=== PATIENT | female | born 2000 ===

== ENCOUNTER 2020-03-31 00:48 | Inpatient (IN) ==
[2020-03-31] MEDS: LACTATED RINGER'S 1,000 ML IV PRN ×2 (01:10→06:05)
[2020-03-31] MEDS ORDERED: FLUCONAZOLE 50 MG TAB PO ONE (01:23)
[2020-03-31] MEDS ORDERED: OXYTOCIN 30 UNITS/500 ML BAG IV PRN ×3 (01:23→14:23)
[2020-03-31] MEDS ORDERED: PENICILLIN G POTASSIUM 6 MU in DEXTROSE 5% 250 ML IV STA (01:23)
--- NOTE | 2020-03-31 01:40 | History & Physical Report ---
Date of Service March 31, 2020 Assessment & Plan (1) Uterine contractions at greater than 20 weeks of gestation: 20-year-old female G1 at 40 and 5 weeks of gestation presenting with painful and regular contractions and cervical effacement SROM after VE, meconium stained Vaginal peyton VSS Afebrile FHR reassuring GBS positive Plan to admit, monitor, IVF, labs, IV PCN and epidural for pain (2) Spontaneous rupture of amniotic membranes: Admission and Anticipated Discharge Date Admission Date: March 31, 2020 History of Present Illness Primary Care Provider: NO PCP Patient is a 21-year-old at 40 weeks and 5 days of gestation who presented to labor and delivery with regular contractions and leakage of fluid since last night. She states she had contractions all day but they got worse after 10 p.m. she felt leakage of fluid around 11:30 PM. She reports good movements. She appears to be very uncomfortable uncomfortable having contractions every 2 - 3 minutes. has been uncomplicated except GBS positive. Allergies Allergy/AdvReac Type Severity Reaction Status Date / Time No Known Allergies Allergy Unverified 03/31/20 00:53 Home Medications Medication Instructions Recorded Confirmed Type [id number]-[id number] 1 tab PO DAILY 03/31/20 03/31/20 History [] Patient History Social History Smoking Status: Former smoker Hx Alcohol Use: No Hx Substance Use: No Preferred Language: Angolan Communication Ability: Effective Senior Storage Engineer Required: Yes Beliefs That Will Affect Care: None marital status: Single Current Living Situation: Other Current Living Situation Comment: significant other,and fob Other Information That Helps Us Care for You: No Feels Safe at Home: Yes Safety Concerns: Feels Safe At This Time Assistive Devices: None [employer] History No history of STDs, no herpes, chlamydia or gonorrhea. Review of Systems All systems reviewed & are unremarkable except as noted in HPI & below Physical Exam Constitutional: WD/WN, vitals as above well developed and + acute distress (with contractions) Genitourinary: normal external appearance Speculum/Bimanual Exam: + abnormal vaginal discharge (peyton+) and + vaginal erythema OB Exam Abdomen: + vertex Manual OB Exam: + cervical dilation (1-2 cm), + cervical effacement 70% and + station -2 OB Exam Monitor Tracing: + category I Nitrazine neg, Amnisure negative 5 minutes after VE she had SROM with meconium stained fluid Results & Data ([facility]) Vital Signs (Past 12 Hours) Vital Signs Temp Pulse Resp BP 03/31/20 01:16 37.0 C 18 03/31/20 00:56 18 03/31/20 00:52 76 136/82
[2020-03-31 01:44] LABS: Hematocrit (blood only) 39.6 % (37-47); Hemoglobin 14.2 g/dL (12.0-16.0); Mean Corpuscular Hemoglobin 32.3 pg (25-34); Mean Corpuscular Hgb Conc 35.9 g/dL (32-36); Mean Platelet Volume 11.1 fL (7.4-10.4); Platelet Count 347 K/uL (130-400); RDW Coefficient of Variation 12.9 % (11.5-14.5); RDW Standard Deviation 42.3 fL (36.4-46.3); White Blood Count 15.24 K/uL (4.8-10.8)
[2020-03-31] MEDS ORDERED: SODIUM CHLORIDE 0.9% INJ 10 ML VIAL ONE (01:58)
[2020-03-31] MEDS ORDERED: ePHEDrine sulfate 50 MG/ML AMP ONE (01:58)
[2020-03-31] MEDS ORDERED: fentaNYL citrate 100 MCG/2 ML VIAL ONE (01:59)
[2020-03-31] MEDS ORDERED: fentaNYL 2MCG/ML ROPIVACAINE 1.25MG/ML 100 ML BAG EPI ONE (01:59)
[2020-03-31] MEDS ORDERED: BUPIVACAINE 0.25% 30 ML VIAL ONE (01:59)
--- NOTE | 2020-03-31 02:03 | Anesthesiology Consultation ---
Date of Service March 31, 2020 Assessment & Plan Chart Review Chart Review: Acceptable Risk for Surgery, Patient NOT seen in Pre Admission Testing and Acceptable Risk for Labor Epidural Consults Requested none ASA ASA2 Proposed Anesthesia Anesthesia Type: Labor Epidural and CSE History Height/Weight Height: 5 ft Weight: 78.471 kg Allergies Allergy/AdvReac Type Severity Reaction Status Date / Time No Known Allergies Allergy Unverified 03/31/20 00:53 Medications Home Medications Medication Instructions Recorded Confirmed Last Taken fiiriszf-eyx-[id number]-FA 1 tab PO DAILY 03/31/20 03/31/20 03/30/20 08:00 [] Active Medications Generic Name Dose Route Start Last Admin Trade Name Freq PRN Reason Stop Dose Admin Penicillin G Potassium 6 mu/ 262 mls @ 262 mls/hr 03/31/20 01:23 03/31/20 02:02 Dextrose IV 03/31/20 02:22 262 mls/hr NOW STA Administration Lactated Ringer's 1,000 mls @ 150 mls/hr 03/31/20 01:23 03/31/20 02:03 Lr IV 04/02/20 01:22 0 mls/hr .[id number] PRN Infusion L&D Protocol Protocol Exercise / Class Metabolic Activity II 4-5 Yardwork/Stairs/Walk up hill Past Anesthesia History No Hx of Anesthesia Complications and No Family Hx of Anesthesia Complications History of PONV No Hx of PONV and No Hx of Motion Sickness Social History Smoking Status: Former smoker Hx Alcohol Use: No Hx Substance Use: No Physical Exam Vital Signs Last Vital Signs Temp 37.0 C 03/31/20 01:16 Pulse 76 03/31/20 00:52 Resp 18 03/31/20 01:16 BP 136/82 03/31/20 00:52 Testing Laboratory Results 03/31/20 01:31
[2020-03-31] MEDS ORDERED: NALOXONE HCL 0.4 MG/1 ML VIAL/CARP IV PRN (02:45)
[2020-03-31] MEDS ORDERED: PROMETHAZINE HCL 25 MG in SODIUM CHLORIDE 0.9% 50 ML IV PRN (02:45)
[2020-03-31] MEDS ORDERED: fentaNYL 2MCG/ML ROPIVACAINE 1.25MG/ML 100 ML BAG EPI PRN (02:45)
[2020-03-31] MEDS ORDERED: NALOXONE HCL 1 MG in SODIUM CHLORIDE 0.9% 1000ML 1,000 ML IV PRN (02:45)
[2020-03-31] MEDS ORDERED: ONDANSETRON INJ 2 MG/ML 2 ML VIAL IV PRN (02:45)
[2020-03-31] MEDS ORDERED: diphenhydrAMINE 50 MG/ML VIAL IV PRN (02:45)
[2020-03-31] MEDS ORDERED: ePHEDrine sulfate 50 MG/ML AMP IV PRN (02:45)
[2020-03-31] MEDS: PENICILLIN G POTASSIUM 3 MU in DEXTROSE 5% 100 ML IV PRN ×2 (06:04→09:54)
--- NOTE | 2020-03-31 12:46 | Delivery Summary ---
Vaginal Delivery Summary Date of Service March 31, 2020 Vaginal Delivery Summary Delivery Note live male over intact perineum [place] with Apgars 8/9 weight pending. Cord blood obtained followed by spontaneous delivery of intact placenta. First degree tear repaired with 3/0 Vicryl suture. EBL 200 ml. Final sponge, needle and instrument count are correct. Mom and baby stable.
[2020-03-31] MEDS ORDERED: bisacodyL 10 MG SUPP PR PRN (14:23)
[2020-03-31] MEDS ORDERED: DIPHTHERIA/TETANUS/PERTUSSIS 0.5 ML SYR/VIAL IM ONE (14:23)
[2020-03-31] MEDS ORDERED: ACETAMINOPHEN 325 MG TAB PO PRN (14:23)
[2020-03-31] MEDS ORDERED: BENZOCAINE 20% AER SPR 82.5 GM CAN EXT PRN (14:23)
[2020-03-31] MEDS ORDERED: SUPERCREAM 0.870% 15 GM JAR EXT PRN (14:23)
[2020-03-31] MEDS ORDERED: HYDROCORTISONE ACETATE 25 MG SUPP PR PRN (14:23)
[2020-03-31] MEDS ORDERED: IBUPROFEN 600 MG TAB PO ONE (14:29)
[2020-03-31] MEDS: IBUPROFEN 600 MG TAB PO PRN ×2 (14:31→23:53)
--- NOTE | 2020-03-31 15:01 | Anesthesia Procedure Note ---
Date of Service March 31, 2020 Anesthesia Post Epidural Note Vital Signs Vital Signs: Temp Pulse Resp BP 36.9 C 82 18 137/70 03/31/20 09:29 03/31/20 13:17 03/31/20 09:29 03/31/20 13:17 Pain Intensity Abdomen: Pain Intensity: 8 Notes Mental Status: alert / awake / arousable and participated in evaluation Nausea / Vomiting: adequately controlled Pain: adequately controlled Airway Patency, RR, SpO2: stable & adequate BP & HR: stable & adequate Hydration State: stable & adequate Neuraxial Anesthesia: was administered and sensory block is resolving Anesthetic Complications: no major complications apparent and Pt Satisfied with anesthetic care Epidural: Removed without complications and With tip intact Notes: Epidural site clean, dry and intact. No signs of edema, erythema or bruising at insertion site. Pt instructed to request anesthesia if she has residual lower extremity numbness or if she develops lower extremity pain or weakness, back pain or headache.
[2020-03-31] MEDS: DOCUSATE SODIUM 100 MG CAP PO SCH (20:37)
[2020-04-01 06:31] LABS: Hematocrit (blood only) 36.6 % (37-47); Hemoglobin 12.5 g/dL (12.0-16.0); Mean Corpuscular Hemoglobin 31.2 pg (25-34); Mean Corpuscular Hgb Conc 34.2 g/dL (32-36); Mean Corpuscular Volume 91.3 fL (80-100); Mean Platelet Volume 10.9 fL (7.4-10.4); Platelet Count 258 K/uL (130-400); RDW Coefficient of Variation 13.2 % (11.5-14.5); RDW Standard Deviation 43.2 fL (36.4-46.3); Red Blood Count 4.01 M/uL (4.2-5.4); White Blood Count 13.39 K/uL (4.8-10.8)
[2020-04-01] MEDS: DOCUSATE SODIUM 100 MG CAP PO SCH ×2 (08:05→20:20)
[2020-04-01] MEDS: PRENATAL VITAMIN 1 TAB PO SCH (08:05)
[2020-04-01] MEDS ORDERED: NON-FORMULARY MEDICATION (Prenatal Multivit-Min-Fe-Fa 1 mg Tablet) PO SCH (09:00)
--- NOTE | 2020-04-01 09:49 | Obstetrical Progress Note ---
Date of Service April 01, 2020 Assessment & Plan Admission and Anticipated Discharge Date Admission Date: March 31, 2020 Subjective Patient is seen and examined. She feels well, no complaints. Ambulating without dizziness Voiding without difficulty Tolerating regular diet with out N&V Bleeding is minimal No fever/ chills/ CP/ SOB/ N&V/ Leg pain Breast feeding without problems Vital Signs Temp Pulse Pulse Resp BP Pulse Ox 04/01/20 07:03 36.7 C 73 20 128/80 98 04/01/20 03:00 36.6 C 60 17 119/71 98 03/31/20 23:45 36.7 C 71 17 125/77 99 Lab Results 03/31/20 03/31/20 03/31/20 Range/Units 01:31 04:55 Unknown WBC 15.24 H (4.8-10.8) K/uL RBC 4.40 (4.2-5.4) M/uL Hgb 14.2 (12.0-16.0) g/dL Hct 39.6 (37-47) % MCV 90.0 (80-100) fL MCH 32.3 (25-34) pg MCHC 35.9 (32-36) g/dL RDW Std Deviation 42.3 (36.4-46.3) fL RDW Coeff of Deangelo 12.9 (11.5-14.5) % Plt Count 347 (130-400) K/uL MPV 11.1 H (7.4-10.4) fL Amniotic Protein NEG [facility] SARS-CoV-2, RNA, NAAT (NEGATIVE) 03/31/20 04/01/20 Range/Units Unknown 06:21 WBC 13.39 H (4.8-10.8) K/uL RBC 4.01 L (4.2-5.4) M/uL Hgb 12.5 (12.0-16.0) g/dL Hct 36.6 L (37-47) % MCV 91.3 (80-100) fL MCH 31.2 (25-34) pg MCHC 34.2 (32-36) g/dL RDW Std Deviation 43.2 (36.4-46.3) fL RDW Coeff of Deangelo 13.2 (11.5-14.5) % Plt Count 258 (130-400) K/uL MPV 10.9 H (7.4-10.4) fL Amniotic Protein COVID-19 Eval Order SARS-CoV-2, RNA, NAAT NEGATIVE (NEGATIVE) PE: General: Alert, orientedx3, NAD Abd: soft, NT, fundus firm, below Umbilicus Perineum intact, Lochia rubra minimal Ext; NT, no edema AP: 20 yo s/p , ppd# 1 VSS Afebrile doing well Continue routine care All questions were answered D/C home tomorrow Results & Data ([facility]) Vital Signs (Past 12 Hours) Vital Signs Temp Pulse Pulse Resp BP Pulse Ox 04/01/20 07:03 36.7 C 73 20 128/80 98 04/01/20 03:00 36.6 C 60 17 119/71 98 03/31/20 23:45 36.7 C 71 17 125/77 99
[2020-04-01] MEDS: IBUPROFEN 600 MG TAB PO PRN (18:34)
[2020-04-01] MEDS ORDERED: bisacodyL 5 MG TABEC PO SCH (20:00)
[2020-04-02 06:30] LABS: Hematocrit (blood only) 36.2 % (37-47); Hemoglobin 12.5 g/dL (12.0-16.0)
[2020-04-02] MEDS: IBUPROFEN 600 MG TAB PO PRN ×2 (09:08)
[2020-04-02] MEDS: PRENATAL VITAMIN 1 TAB PO SCH (09:09)
[2020-04-02] MEDS: DOCUSATE SODIUM 100 MG CAP PO SCH (09:10)
--- NOTE | 2020-04-02 10:09 | Obstetrical Progress Note ---
Date of Service April 02, 2020 Assessment & Plan (1) Normal course: PPD #2 pt doing well dsich home with instructions Subjective Ambulation: ambulating normally Voiding: no voiding problems Passing Gas:: Yes Diet Tolerance:: regular diet Lochia:: Small Feeding Type:: breast feeding Review of Systems All systems reviewed & are unremarkable except as noted in HPI & below Physical Exam Constitutional WD/WN, vitals as above well developed and well nourished Eyes PERRL, conjunctivae normal, anicteric sclerae Neck trachea midline, no thyromegaly Respiratory normal respiratory effort, lungs clear to auscultation Auscultation: no crackles, no rales and no wheezes Cardiovascular RRR, no murmur, no edema Gastrointestinal (Abdomen) normal bowel sounds, soft, nontender, no hepatosplenomegaly Uterus is below umbilicus Musculoskeletal no cyanosis or clubbing, extremities motor strength 5/5 Skin no rashes, warm and dry Neurologic patellar DTR's 2+ bilat, sensation intact Psychiatric A+Ox3, euthymic affect Genitourinary normal external appearance Results & Data ([facility]) Vital Signs (Past 12 Hours) Vital Signs Temp Pulse Resp BP Pulse Ox 04/02/20 07:47 36.8 C 57 L 18 120/71 100 04/02/20 00:00 36.7 C 66 18 123/67
== END 2020-04-02 11:45 | disposition home or self-care (01) | DRG 807 ==
LOC: 4S1 00:48 → 4S2 15:20